=== PATIENT | female | born 1990 | race Caucasian/White ===

== ENCOUNTER 2022-06-25 20:07 | Emergency (ER) | payer OTHER ==
[~2022-06-25] VITALS: Ht 155 cm; Wt 52.1 kg
[2022-06-25 20:15] VITALS: BP 141/53
[2022-06-25] MEDS ORDERED: ONDANSETRON 4 MG (ZOFRAN) ORAL DISSOLVE TAB PO STA (20:21)
[2022-06-25] MEDS ORDERED: DOXYCYCLINE 100 MG (VIBRAMYCIN) TABLET PO STA (20:21)
--- NOTE | 2022-06-25 20:21 | ED General ---
General Stated Complaint: MEDICAL CLEARANCE Source of Information: Patient, Police Exam Limitations: No Limitations History of Present Illness Date Seen by Provider: Jun 25, 2022 Time Seen by Provider: 20:10 Initial Comments 72-year-old female with no pertinent past medical history coming in with police after she was arrested. Reportedly was acting normal until she was arrested, and then started stating that she does not feel right. She says she is feeling lightheaded and nauseous. Please have concerns for drugs, patient denies drugs at this time. She does say that she has had unprotected sex, but just got off her period. She states she has had PID in the past, and is unsure if she could have it now. Denies any abdominal pain, vomiting, diarrhea, hematuria, dysuria, but does say she has had a little bit of vaginal discharge that is slightly abnormal. Otherwise denying any other acute complaints. Allergies and Home Medications Allergies Coded Allergies: No Known Drug Allergies (Unverified , 06/25/22) Patient Home Medication List Home Medication List Reviewed: Yes Review of Systems Review of Systems Constitutional: No fever EENTM: no symptoms reported Respiratory: no symptoms reported Cardiovascular: see HPI Gastrointestinal: see HPI Musculoskeletal: no symptoms reported Skin: no symptoms reported Psychiatric/Neurological: No Symptoms Reported Hematologic/Lymphatic: No Symptoms Reported Past Wmnnslv-Hyxtka-Mwrytr Hx Patient Social History Tobacco Use?: Yes Tobacco type used: Cigarettes Past Medical History Surgeries: No Physical Exam Vital Signs Capillary Refill : Height, Weight, BMI Height: '" Weight: lbs. oz. kg; BMI Method: General Appearance: No Apparent Distress, WD/WN Eyes: Bilateral Eye Normal Inspection HEENT: PERRL/EOMI, Normal ENT Inspection, Pharynx Normal Neck: Full Range of Motion, Normal Inspection, Non Tender, Supple Respiratory: Chest Non Tender, Lungs Clear, Normal Breath Sounds, No Accessory Muscle Use, No Respiratory Distress Cardiovascular: Regular Rate, Rhythm, No Edema, Normal Peripheral Pulses Gastrointestinal: Normal Bowel Sounds, Non Tender, Soft; No Distended, No Guarding Rectal: Deferred Genital/Rectal: Other (Patient deferred) Back: Normal Inspection, No CVA Tenderness Extremity: Normal Capillary Refill, Normal Inspection, Normal Range of Motion, Non Tender, No Calf Tenderness, No Pedal Edema Neurologic/Psychiatric: Alert, Oriented x3, No Motor/Sensory Deficits, Normal Mood/Affect Skin: Normal Color, Warm/Dry Progress/Results/Core Measures Suspected Sepsis SIRS Temperature: Pulse: Respiratory Rate: Blood Pressure / Mean: Results/Orders My Orders Orders - LAVERNE MORA MD Accucheck Stat ONCE (06/25/22 20:20) Ekg Tracing (06/25/22 20:20) Vital Signs/I&O Capillary Refill : Progress Note : Progress Note 32-year-old female with above history coming in feeling lightheaded. ABCs were intact and vitals were stable on presentation. Physical exam with no acute abnormalities, specifically she has a soft and nontender abdomen. The patient deferred a exam in the setting of stating she is having some vaginal discharge that is slightly unusual. LMP was a couple days ago. I offered a urinalysis, test, as well as GC and Chlamydia testing. Patient states she does not want that at this time and she would prefer to just be treated if possible. We will give her an IM injection of ceftriaxone, oral Doxy, and a prescription for oral doxycycline. EKG with no acute ischemic changes, normal QTc, no delta wave. Patient otherwise well-appearing and I believe stable for discharge with outpatient follow-up. She was sent with the officer with strict return precautions. ECG Initial ECG Impression Date: Jun 25, 2022 Initial ECG Impression Time: 20:27 Initial ECG Rate: 79 Initial ECG Rhythm: Normal Sinus Comment Narrow QRS, normal axis, no significant ST changes or T wave abnormalities, no delta wave Departure Impression Primary Impression: Light headed Additional Impression: Vaginal discharge Disposition: 21 DIS/[address]/LAW [employer] Condition: Stable Departure-Patient Inst. Decision time for Depature: 20:40 Referrals: [facility]/MIGUEL QUIROGA,LOCAL PHYSICIAN (PCP) Primary Care Physician Patient Instructions: Dizziness, Adult ED Add. Discharge Instructions: You will be on antibiotics for the next 10 days. You can also take the nausea medicines as needed. Follow-up with your regular doctor if you have concerns. If you do not have a doctor, you can follow-up with [facility], the number is in this paperwork. LAVERNE MORA MD Jun 25, 2022 20:21
[2022-06-25] MEDS ORDERED: LIDOCAINE 1% INJ 20 ML VIAL ONE (20:29)
[2022-06-25] MEDS ORDERED: cefTRIAXone 1,000 MG VIAL IM ONE (20:30)
== END 2022-06-25 20:41 ==
LOC: ER FS 20:13
DX: R42 Dizziness and giddiness (principal); N89.8 Other specified noninflammatory disorders of vagina; F17.210 Nicotine dependence, cigarettes, uncomplicated; Z28.310 Unvaccinated for COVID-19
CPT/HCPCS: 93005